=== PATIENT | female | born 1985 | race American Indian/Alaskan Native ===

== ENCOUNTER 2020-08-16 23:37 | Emergency (ER) | payer MEDICAID ==
[2020-08-16 23:58] VITALS: BP 146/99
[2020-08-17] MEDS ORDERED: oxyCODONE /ACETAMINOPHEN 5-325MG TAB PO ONE (00:45)
[2020-08-17] MEDS ORDERED: IBUPROFEN 800 MG TAB PO ONE (00:45)
[2020-08-17] MEDS ORDERED: SULFAMETHOXAZOLE/TRIMETHOPRIM 800/160MG DS TAB PO ONE (00:45)
[2020-08-17] MEDS ORDERED: CLINDAMYCIN 300 MG CAP PO ONE (00:45)
[2020-08-17] MEDS ORDERED: ONDANSETRON 4 MG ODT TAB PO ONE (00:45)
--- NOTE | 2020-08-17 00:50 | Emergency Department Report ---
ED General Adult HPI - General Chief complaint: Skin/Abscess/Foreign Body Stated complaint: KNOT UNDER RT ARM Source: patient Mode of arrival: Ambulatory Limitations: No Limitations - History of Present Illness Initial comments: Patient is a 35-year-old -[place] female with a history of recurrent hidradenitis suppurativa rashes who presents to the ED with acute onset pe rsistent severely painful swollen mild erythematous maculopapular rash on right axilla for the last 1 week. Patient states that initially the pain started mildly but in the last 3 days the pain and the swelling of worsened despite taking [id number] pain medications. Patient states that she however did not take any medications for pain prior to arrival in the ED. Patient denies fever, chills, nausea, vomiting, dizziness, syncope, numbness and tingling or weakness of right arm, headache, cough, traumatic injury, fall, chest pain or shortness of breath MD Complaint: right axilla painful swollen rash -: Sudden, week(s) (1) Location: upper extremity (right axilla) Radiation: extremity (distal right arm) Severity scale (0 -10): 10 Quality: aching, sharp Consistency: constant Improves with: none Worsens with: movement Associated Symptoms: denies other symptoms, rash (erythematous maculopapular rash). denies: confusion, chest pain, cough, diaphoresis, fever/chills, headaches, loss of appetite, malaise, nausea/vomiting, shortness of breath, syncope, weakness Treatments Prior to Arrival: none - Related Data Previous Rx's Medication Instructions Recorded Last Taken Type Clindamycin [Clindamycin CAP] 300 mg PO Q8HR #60 capsule 08/17/20 Unknown Rx Ibuprofen [Motrin] 800 mg PO Q8HR PRN #30 tablet 08/17/20 Unknown Rx Ondansetron [Zofran Odt] 4 mg PO Q8HR PRN #15 tab.rapdis 08/17/20 Unknown Rx Sulfamethoxazole/Trimethoprim 1 each PO Q12H #20 tablet 08/17/20 Unknown Rx [Bactrim DS TAB] traMADoL [Ultram] 50 mg PO Q6HR PRN #12 tablet 08/17/20 Unknown Rx Allergies Allergy/AdvReac Type Severity Reaction Status Date / Time morphine Allergy Swelling Verified 08/17/20 00:00 ED Review of Systems ROS: Stated complaint: KNOT UNDER RT ARM Other details as noted in HPI Constitutional: denies: chills, fever Eyes: denies: eye pain, eye discharge, vision change ENT: denies: ear pain, throat pain Respiratory: denies: cough, shortness of breath, wheezing Cardiovascular: denies: chest pain, palpitations Endocrine: no symptoms reported Gastrointestinal: denies: abdominal pain, nausea, vomiting, diarrhea Genitourinary: denies: urgency, dysuria, discharge Musculoskeletal: arthralgia (right axilla painful swollen erythematous rash ), myalgia. denies: back pain, joint swelling Skin: rash (swollen erythematous maculopapular rash with pain), change in color (erythematous). denies: lesions Neurological: denies: headache, weakness, paresthesias Psychiatric: denies: anxiety, depression Hematological/Lymphatic: denies: easy bleeding, easy bruising ED Past Medical Hx - Past Medical History Previous Medical History?: No - Surgical History Past Surgical History?: Yes Additional Surgical History: Ortho Surgery - Social History Smoking Status: Never Smoker Substance Use Type: Alcohol - Medications Home Medications: Home Medications Medication Instructions Recorded Confirmed Last Taken Type Clindamycin [Clindamycin CAP] 300 mg PO Q8HR #60 capsule 08/17/20 Unknown Rx Ibuprofen [Motrin] 800 mg PO Q8HR PRN #30 tablet 08/17/20 Unknown Rx Ondansetron [Zofran Odt] 4 mg PO Q8HR PRN #15 tab.rapdis 08/17/20 Unknown Rx Sulfamethoxazole/Trimethoprim 1 each PO Q12H #20 tablet 08/17/20 Unknown Rx [Bactrim DS TAB] traMADoL [Ultram] 50 mg PO Q6HR PRN #12 tablet 08/17/20 Unknown Rx ED Physical Exam - General Limitations: No Limitations General appearance: alert, in no apparent distress - Head Head exam: Present: atraumatic, normocephalic, normal inspection - Eye Eye exam: Present: normal appearance, PERRL, EOMI Pupils: Present: normal accommodation - ENT ENT exam: Present: normal exam, normal orophraynx, mucous membranes moist, TM's normal bilaterally, normal external ear exam - Neck Neck exam: Present: normal inspection, full ROM - Respiratory Respiratory exam: Present: normal lung sounds bilaterally. Absent: respiratory distress, wheezes, rales, rhonchi, chest wall tenderness, accessory muscle use, decreased breath sounds, prolonged expiratory - Cardiovascular Cardiovascular Exam: Present: regular rate, normal rhythm, normal heart sounds. Absent: systolic murmur, diastolic murmur, rubs, gallop - GI/Abdominal GI/Abdominal exam: Present: soft, normal bowel sounds. Absent: tenderness, guarding, rebound, hyperactive bowel sounds, hypoactive bowel sounds, organomegaly - Extremities Exam Extremities exam: Present: normal inspection, full ROM, tenderness (Palpable right axilla tenderness due to erythematous maculopapular fluctuant rash), normal capillary refill - Back Exam Back exam: Present: normal inspection, full ROM. Absent: tenderness, muscle spasm, paraspinal tenderness - Neurological Exam Neurological exam: Present: alert, oriented X3, CN II-XII intact, normal gait, reflexes normal - Psychiatric Psychiatric exam: Present: normal affect, normal mood - Skin Skin exam: Present: warm, dry, intact, normal color, rash (Erythematous maculopapular severely tender right axilla maculopapular fluctuant rash) ED Course Vital Signs 08/16/20 08/16/20 23:52 23:58 Temperature 97.8 F 97.8 F Pulse Rate 83 83 Respiratory 18 18 Rate Blood Pressure 146/99 Blood Pressure 146/99 [Left] O2 Sat by Pulse 100 100 Oximetry ED Medical Decision Making - Medical Decision Making This is a 35-year-old -[place] female with a history of recurrent hidradenitis suppurativa rashes who presents to the ED with acute onset persistent severely painful swollen mild erythematous maculopapular rash on right axilla for the last 1 week. Patient states that initially the pain started mildly but in the last 3 days the pain and the swelling of worsened despite taking [id number] pain medications. Patient states that she however did not take any medications for pain prior to arrival in the ED. In the ED, patient is alert and oriented x3 and is not in distress but appears to be in significant pain. Patient was treated for pain in the ED and also given initial oral antibiotics. Patient was also offered I&D procedure to open and drain and debride the right axilla abscess but the patient declined stating that she would prefer to take antibiotics and pain medications. On reevaluation, patient's pain is well controlled medication. Patient will discharge home on antibiotics and pain medications and advised to follow-up with her primary care physician in 5 to 7 days for reevaluation or return to the ED immediately if symptoms get worse. - Differential Diagnosis Cutaneous abscess; cellulitis; folliculitis; lymphadenopathy Critical care attestation.: If time is entered above; I have spent that time in minutes in the direct care of this critically ill patient, excluding procedure time. ED Disposition Clinical Impression: Cutaneous abscess of right axilla, Cellulitis of right axilla, Acute folliculitis Disposition: TO HOME OR SELFCARE Is pt being admited?: No Does the pt Need Aspirin: No Condition: Stable Instructions: Skin Abscess, [id number], Cellulitis, Adult, [id number] Additional Instructions: Take medication with food, drink plenty of fluids and follow-up with your primary care physician in 7 to 10 days for reevaluation. Return to the ED immediately if symptoms get worse. Prescriptions: Sulfamethoxazole/Trimethoprim [Bactrim DS TAB] 1 each PO Q12H #20 tablet Clindamycin [Clindamycin CAP] 300 mg PO Q8HR #60 capsule Ibuprofen [Motrin] 800 mg PO Q8HR PRN #30 tablet PRN Reason: Pain , Severe (7-10) traMADoL [Ultram] 50 mg PO Q6HR PRN #12 tablet PRN Reason: Pain Ondansetron [Zofran Odt] 4 mg PO Q8HR PRN #15 tab.rapdis PRN Reason: Nausea Referrals: [facility] [Provider Group] - 3-5 Days Time of Disposition: 00:50 Print Language: CENTRAL AFRICAN
== END 2020-08-17 01:09 | disposition home or self-care (01) ==
LOC: ED 23:37
DX: L03.111 Cellulitis of right axilla (principal); L73.9 Follicular disorder, unspecified; Z98.890 Other specified postprocedural states; Z79.1 Long term (current) use of non-steroidal anti-inflammatories (NSAID); Z79.2 Long term (current) use of antibiotics; Z79.899 Other long term (current) drug therapy; Z88.8 Allergy status to other drugs, medicaments and biological substances
CPT/HCPCS: 99282; Q0162

== ENCOUNTER 2021-02-07 10:40 | Emergency (ER) | payer MEDICAID ==
--- NOTE | 2021-02-07 11:00 | Emergency Department Report ---
- General Chief complaint: Skin/Abscess/Foreign Body Stated complaint: POSS CYST/RT ARMPIT Time Seen by Provider: 02/07/21 10:45 Source: patient Mode of arrival: Ambulatory Limitations: No Limitations - History of Present Illness Initial comments: Patient is a 35-year-old female with a history of vaginitis suppurativa who presents the emergency room with complaints of a possible abscess to the right axilla that began 2 days ago. She states that she frequently gets these. She states that she has had steroid injections in the past. She is not currently seeing a head usher or surgeon. She denies any fever, drainage, nausea, vomiting, diarrhea, chills, body aches. No other past medical history. Allergy to morphine. She states that she has IUD as control. - Related Data Previous Rx's Medication Instructions Recorded Last Taken Type Clindamycin [Clindamycin CAP] 300 mg PO Q8HR #60 capsule 08/17/20 Unknown Rx Ibuprofen [Motrin] 800 mg PO Q8HR PRN #30 tablet 08/17/20 Unknown Rx Ondansetron [Zofran Odt] 4 mg PO Q8HR PRN #15 tab.rapdis 08/17/20 Unknown Rx Sulfamethoxazole/Trimethoprim 1 each PO Q12H #20 tablet 08/17/20 Unknown Rx [Bactrim DS TAB] traMADoL [Ultram] 50 mg PO Q6HR PRN #12 tablet 08/17/20 Unknown Rx Chlorhexidine Gluconate [Hibiclens] 30 ml TP DAILY #1 bottle 02/07/21 Unknown Rx Ibuprofen [Motrin 600 MG tab] 600 mg PO Q8H PRN #20 tablet 02/07/21 Unknown Rx Sulfamethoxazole/Trimethoprim 1 each PO BID 7 Days #14 tablet 02/07/21 Unknown Rx [Bactrim DS TAB] Allergies Allergy/AdvReac Type Severity Reaction Status Date / Time morphine Allergy Swelling Verified 08/17/20 00:00 Abscess Boil HPI - HPI Chief Complaint: Skin/Abscess/Foreign Body Stated Complaint: POSS CYST/RT ARMPIT Time Seen by Provider: 02/07/21 10:45 Home Medications: Previous Rx's Medication Instructions Recorded Last Taken Type Clindamycin [Clindamycin CAP] 300 mg PO Q8HR #60 capsule 08/17/20 Unknown Rx Ibuprofen [Motrin] 800 mg PO Q8HR PRN #30 tablet 08/17/20 Unknown Rx Ondansetron [Zofran Odt] 4 mg PO Q8HR PRN #15 tab.rapdis 08/17/20 Unknown Rx Sulfamethoxazole/Trimethoprim 1 each PO Q12H #20 tablet 08/17/20 Unknown Rx [Bactrim DS TAB] traMADoL [Ultram] 50 mg PO Q6HR PRN #12 tablet 08/17/20 Unknown Rx Chlorhexidine Gluconate [Hibiclens] 30 ml TP DAILY #1 bottle 02/07/21 Unknown Rx Ibuprofen [Motrin 600 MG tab] 600 mg PO Q8H PRN #20 tablet 02/07/21 Unknown Rx Sulfamethoxazole/Trimethoprim 1 each PO BID 7 Days #14 tablet 02/07/21 Unknown Rx [Bactrim DS TAB] Allergies/Adverse Reactions: Allergies Allergy/AdvReac Type Severity Reaction Status Date / Time morphine Allergy Swelling Verified 08/17/20 00:00 ED Review of Systems ROS: Stated complaint: POSS CYST/RT ARMPIT Other details as noted in HPI Comment: All other systems reviewed and negative ED Past Medical Hx - Past Medical History Previous Medical History?: No - Surgical History Past Surgical History?: Yes Additional Surgical History: Ortho Surgery - Social History Smoking Status: Never Smoker Substance Use Type: Alcohol - Medications Home Medications: Home Medications Medication Instructions Recorded Confirmed Last Taken Type Clindamycin [Clindamycin CAP] 300 mg PO Q8HR #60 capsule 08/17/20 Unknown Rx Ibuprofen [Motrin] 800 mg PO Q8HR PRN #30 tablet 08/17/20 Unknown Rx Ondansetron [Zofran Odt] 4 mg PO Q8HR PRN #15 tab.rapdis 08/17/20 Unknown Rx Sulfamethoxazole/Trimethoprim 1 each PO Q12H #20 tablet 08/17/20 Unknown Rx [Bactrim DS TAB] traMADoL [Ultram] 50 mg PO Q6HR PRN #12 tablet 08/17/20 Unknown Rx Chlorhexidine Gluconate [Hibiclens] 30 ml TP DAILY #1 bottle 02/07/21 Unknown Rx Ibuprofen [Motrin 600 MG tab] 600 mg PO Q8H PRN #20 tablet 02/07/21 Unknown Rx Sulfamethoxazole/Trimethoprim 1 each PO BID 7 Days #14 tablet 02/07/21 Unknown Rx [Bactrim DS TAB] ED Physical Exam - General Limitations: No Limitations General appearance: alert, in no apparent distress - Head Head exam: Present: atraumatic, normocephalic - Eye Eye exam: Present: normal appearance - ENT ENT exam: Present: mucous membranes moist - Respiratory Respiratory exam: Absent: respiratory distress, accessory muscle use - Neurological Exam Neurological exam: Present: alert, oriented X3 - Psychiatric Psychiatric exam: Present: normal affect, normal mood - Skin Skin exam: Present: warm, dry, other (two small 1 cm areas of induration present to the right axilla, no central fluctuance, no opening, no drainage, no necrosis, no significant surrounding erythema) ED Course Vital Signs 02/07/21 10:44 Temperature 98.7 F Pulse Rate 84 Respiratory 13 Rate Blood Pressure 138/91 O2 Sat by Pulse 99 Oximetry ED Medical Decision Making - Medical Decision Making Patient is a 35-year-old female with a history of vaginitis suppurativa who presents the emergency room with complaints of a possible abscess to the right axilla that began 2 days ago. She states that she frequently gets these. She states that she has had steroid injections in the past. She is not currently seeing a head usher or surgeon. She denies any fever, drainage, nausea, vomiting, diarrhea, chills, body aches. No other past medical history. Allergy to morphine. She states that she has IUD as control. Vitals are stable. On exam:two small 1 cm areas of induration present to the right axilla, no central fluctuance, no opening, no drainage, no necrosis, no significant surrounding erythema. No drainable abscess at this time. Patient given prescription for medications. Advised patient Please take medication as prescribed. Please use Hibiclens to wash. Please do warm compresses 3 times a day. Follow-up with a head usher and surgeon. return to emergency room for any new or symptoms. Critical care attestation.: If time is entered above; I have spent that time in minutes in the direct care of this critically ill patient, excluding procedure time. ED Disposition Clinical Impression: Hidradenitis suppurativa Cellulitis Qualifiers: Site of cellulitis: extremity Site of cellulitis of extremity: axilla Laterality: right Qualified Code(s): L03.111 - Cellulitis of right axilla Disposition: -01 TO HOME OR SELFCARE Is pt being admited?: No Does the pt Need Aspirin: No Condition: Stable Instructions: Hidradenitis Suppurativa Additional Instructions: Please take medication as prescribed. Please use Hibiclens to wash. Please do warm compresses 3 times a day. Follow-up with a head usher and surgeon. return to emergency room for any new or symptoms. [employer] in [place], [place] Address: [address], [place] [address] Bernardo Drummond MD [employer] in [place] [address] [facility], [place] [address] Dewey Li [facility] [place] [employer] in [place] Address: [address], [place] [address] Prescriptions: Sulfamethoxazole/Trimethoprim [Bactrim DS TAB] 1 each PO BID 7 Days #14 tablet Chlorhexidine Gluconate [Hibiclens] 30 ml TP DAILY #1 bottle Ibuprofen [Motrin 600 MG tab] 600 mg PO Q8H PRN #20 tablet PRN Reason: Pain Referrals: ANGEL NIX MD [Staff Physician] - 2-3 Days Time of Disposition: 10:56 Print Language: BOLIVIAN
== END 2021-02-07 12:09 | disposition home or self-care (01) ==
LOC: ED 10:40
CPT/HCPCS: 99282